=== PATIENT | male | born 1990 | race Two or more races ===

== ENCOUNTER 2024-07-07 01:30 | Emergency (ER) | payer SELFPAY ==
[2024-07-07] MEDS: Diphtheria,Pertussis(Acell),Tetanus Vaccine 0.5 ML Syringe IM ONE (02:10)
[2024-07-07] MEDS: Lidocaine 1% 10 ML MDV INJECT ONE (02:34)
== END 2024-07-07 03:29 | disposition home or self-care (01) ==
LOC: MW.ED 01:30
DX: S01.112A Laceration without foreign body of left eyelid and periocular area, initial encounter (principal); S01.81XA Laceration without foreign body of other part of head, initial encounter; S09.90XA Unspecified injury of head, initial encounter; F10.129 Alcohol abuse with intoxication, unspecified; Z23 Encounter for immunization; Y04.8XXA Assault by other bodily force, initial encounter
CPT/HCPCS: 12014; 70450; 70450-26; 72125; 72125-26; 90471; 90715; 99284; 99284-25; J3490

== ENCOUNTER 2024-07-17 17:59 | Emergency (ER) | payer SELFPAY | END 2024-07-17 18:30 | disposition left against medical advice (07) | LOC: MW.ED 17:59 | DX: Z53.21 Procedure and treatment not carried out due to patient leaving prior to being seen by health care provider (principal) ==

== ENCOUNTER 2024-07-22 19:00 | Emergency (ER) | payer SELFPAY | END 2024-07-22 19:24 | disposition left against medical advice (07) | LOC: MW.ED 19:00 | DX: S01.112D Laceration without foreign body of left eyelid and periocular area, subsequent encounter (principal); S01.111D Laceration without foreign body of right eyelid and periocular area, subsequent encounter; Z48.02 Encounter for removal of sutures | CPT/HCPCS: 99281 ==